=== PATIENT | female | born 1985 | race Caucasian/White ===

== ENCOUNTER 2018-12-20 06:17 | Emergency (ER) | payer MEDICAID, OTHER ==
[~2018-12-20] VITALS: Ht 152.4 cm; Wt 61.9 kg
[~2018-12-20 06:17] MED LIST: OMEP20CA16 PO
[2018-12-20 06:54] VITALS: BP 107/56; PULSE 61; RESP 16; Ht 152.4 cm; Wt 61.9 kg
[2018-12-20] MEDS ORDERED: MUPI22OI2 TOP (07:15)
--- NOTE | 2018-12-21 07:02 | ERD ---
ER Documentation Chief Complaint Chief Complaint PAIN AT SITE OF WOUND; PERFOMED 11 YEARS AGO HPI 33-year-old female presenting with irritation at her site. Patient's last was 11 years ago. Denies fevers. Denies pain with urination. She states she feels some internal pulling sharp electric shock type pain. Denies any fevers. Denies other medical problems. NKDA. Surgical history denies. Social history denies. ROS All systems reviewed and are negative except as per history of present illness. Medications Home Meds Active Scripts Mupirocin* (Bactroban*) 2% -22 Gram Oint...g., 1 APPLIC TOP BID for 7 Days, EA Prov:SANJANA HUMPHRIES PA-C 12/20/18 Reported Medications Omeprazole* (Omeprazole*) 20 Mg Capsule.dr, 20 MG PO DAILY 06/07/13 Allergies Allergies: Coded Allergies: No Known Allergy (Verified , 06/07/13) PMhx/Soc Medical and Surgical Hx: pt denies Medical Hx History of Surgery: Yes (C SECTION X3, TUBAL) Anesthesia Reaction: No Hx Neurological Disorder: No Hx Respiratory Disorders: No Hx Cardiac Disorders: No Hx Psychiatric Problems: No Hx Miscellaneous Medical Probl: No Hx Alcohol Use: No Hx Substance Use: No Hx Tobacco Use: No Physical Exam Vitals Vital Signs Date Temp Pulse Resp B/P (MAP) Pulse Ox O2 O2 Flow FiO2 Time Delivery Rate 12/20/18 99.0 61 16 107/56 99 06:54 (73) Physical Exam GENERAL: The patient is well-appearing, well-nourished, in no acute distress HEENT: Atraumatic. Conjunctivae are pink. Pupils equal, round, and reactive to light. There is no scleral icterus. Tympanic membranes clear bilaterally. Oropharynx clear. No nystagmus or photophobia. NECK: C-spine is soft and supple. There is no meningismus. There is no cervical lymphadenopathy. No JVD. No bruits. No goiter. CHEST: Clear to auscultation bilaterally. There are no rales, wheezes or rhonchi. HEART: Regular rate and rhythm. No murmurs, clicks, rubs or gallops. No S3 or S4. ABDOMEN:Soft, nontender and nondistended. Good bowel sounds. No rebound or guarding. No gross peritonitis. No gross organomegaly or masses. No Robert sign or McBurney point tenderness. SKIN: Erythema noted to the site with some mild probability noted to the skin. No lacerations or abrasions and no purulent discharge. Results 24 hrs Laboratory Tests Test 12/20/18 08:08 12/20/18 08:09 POC Beta HCG, Qualitative NEGATIVE Bedside Urine pH (LAB) 5.5 Bedside Urine Protein (LAB) Negative Bedside Urine Glucose (UA) Negative Bedside Urine Ketones (LAB) Negative Bedside Urine Blood 1+ Bedside Urine Nitrite (LAB) Negative Bedside Urine Leukocyte Esterase (L Negative Procedures/[facility]M DIAGNOSTIC IMAGING REPORT Patient: LOKESH PAREKH : 1985 Age: 33 Sex: F MR #: [id number] DOS: 12/20/18 0740 Ordering MD: JOSE LUIS HUMPHRIES PA-C Location: [facility] Room/Bed: PROCEDURE: Pelvic ultrasound color-flow Doppler of the adnexa. CLINICAL INDICATION: Pain TECHNIQUE: Multiple sagittal, oblique and transverse real time images were obtained of the lower abdomen and pelvis using a transabdominal as well a transvaginal approach. Color-flow Doppler of the adnexa was performed. COMPARISON: Pelvic ultrasound 04/09/2009 FINDINGS: The uterus is normal limits in size measuring 8.34 x 3.64 x 4.79 cm. Myometrial echoes are homogeneous without focal lesions. Endometrium homogeneous without focal lesion and normal thickness maximal AP diameter 0.72 cm. The ovaries are normal in size the right measuring 2.6 x 1.39 x 2.42 cm and the left measuring 2.87 x 1 point by 3 x 2.13 cm. There is flow to both ovaries without ultrasonic evidence of ovarian torsion. Within the right ovary is a 1.5 x 1.2 cm cyst. No other ovarian masses. No adnexal masses or free fluid IMPRESSION: 1. Unremarkable uterus. 2. Normal size ovaries without ultrasonic evidence of ovarian torsion. 3. 1.5 x 1.2 cm right ovarian cyst. 4. No adnexal masses or free fluid. MDM: 33 yr old female complaining of csection pain. Patient's skin exam is concerning for moist skin causing friability at the scar site. Patient has a ovarian cyst noted on ultrasound. I have low suspicion for tubo-ovarian abscess. I have low suspicion for ovarian torsion. I will suspicion for urinary tract infection or other acute abdominal emergencies. Patient is recommended to keep the scar site dry as I believe that moisture is causing it to become friable. Patient is told symptoms change or worsen to return immediately to the ER. All questions answered at discharge Departure Diagnosis: Primary Impression: Skin irritation Condition: Stable Patient Instructions: Dermatitis, Non-Specific Referrals: [facility] YOU HAVE RECEIVED A MEDICAL SCREENING EXAM AND THE RESULTS INDICATE THAT YOU DO NOT HAVE A CONDITION THAT REQUIRES URGENT TREATMENT IN THE EMERGENCY DEPARTMENT. FURTHER EVALUATION AND TREATMENT OF YOUR CONDITION CAN WAIT UNTIL YOU ARE SEEN IN YOUR DOCTORS OFFICE WITHIN THE NEXT 1-2 DAYS. IT IS YOUR RESPONSIBILITY TO MAKE AN APPOINTMENT FOR FOLOW-UP CARE. IF YOU HAVE A PRIMARY DOCTOR --you should call your primary doctor and schedule an appointment IF YOU DO NOT HAVE A PRIMARY DOCTOR YOU CAN CALL OUR PHYSICIAN REFERRAL HOTLINE AT IF YOU CAN NOT AFFORD TO SEE A PHYSICIAN YOU CAN CHOSE FROM THE FOLLOWING FORMERLY [facility] [address] [facility] [address] [facility] [address] [facility] [address] [facility] [address] [facility] [facility]. [address] Additional Instructions: FOLLOW UP WITH YOUR PRIMARY CARE PHYSICIAN TOMORROW.Return to this facility if you are not improving as expected. SANJANA HUMPHRIES PA-C December 21, 2018 07:02
== END 2018-12-20 08:31 | disposition home or self-care (01) ==
LOC: FTE 06:17
DX: L98.9 Disorder of the skin and subcutaneous tissue, unspecified (principal); R10.2 Pelvic and perineal pain
CPT/HCPCS: 76856; 81003; 81025; Z7502